=== PATIENT | male | born 1970 | race Caucasian/White ===

== ENCOUNTER 2019-01-22 21:33 | Emergency (ER) | payer MEDICAID ==
[~2019-01-22] VITALS: Ht 172.7 cm; Wt 99.8 kg
--- NOTE | 2019-01-22 21:43 | NUR ---
Dr. Chambers at bedside for MSE.
[2019-01-22] MEDS ORDERED: IV NORMAL SALINE 1000 ML BAG IV ONE (21:45)
[2019-01-22] MEDS ORDERED: ONDANSETRON 4 MG/2 ML VIAL IV ONE (21:45)
[2019-01-22] MEDS ORDERED: HYDROMORPHONE 1 MG/1 ML DISP.SYRIN IV ONE ×2 (21:45→23:15)
[2019-01-22] MEDS ORDERED: IOHEXOL 300MG/ML 100 ML INFUS..BTL ONE (21:56)
[2019-01-22] MEDS ORDERED: SWABABLE VALVE TRANSFER SET EA MC ONE (21:56)
[2019-01-22] MEDS ORDERED: IV NORMAL SALINE 250 ML IV ONE (21:56)
[2019-01-22] MEDS ORDERED: ONDANSETRON 4 MG/2 ML VIAL ONE (21:58)
[2019-01-22] MEDS ORDERED: HYDROMORPHONE 1 MG/1 ML DISP.SYRIN ONE ×2 (21:58→23:26)
[2019-01-22 22:02] LABS: BASOPHILS % (AUTO) 0.2 % (0.0-2.0); EOSINOPHILS % (AUTO) 0.4 % (0.0-7.0); HEMATOCRIT 46.6 % (36.7-47.1); HEMOGLOBIN 15.5 g/dL (12.5-16.3); LYMPHOCYTES # (AUTO) 1.6 K/uL (20.0-40.0); MEAN CORPUSCULAR HEMOGLOBIN 28.8 uug (23.8-33.4); MEAN CORPUSCULAR HGB CONC 33 g/dL (32.5-36.3); MEAN CORPUSCULAR VOLUME 86.9 fL (73.0-96.2); MONOCYTES # (AUTO) 0.9 K/uL (2.0-10.0); MONOCYTES % (AUTO) 7.2 % (0.0-11.0); NEUTROPHILS # (AUTO) 10.5 K/uL (1.8-8.9); NEUTROPHILS % (AUTO) 80.2 % (38.5-71.5); PLATELET COUNT (AUTO) 231 K/uL (152-348); RED BLOOD CELL COUNT(AUTO) 5.37 MIL/uL (4.06-5.63); WHITE BLOOD COUNT (AUTO) 13.1 K/uL (3.6-10.2)
[2019-01-22 22:11] LABS: CREATININE 1.1 mg/dL (0.6-1.3); POTASSIUM 3.6 mmol/L (3.5-5.1)
[2019-01-22 22:17] LABS: BILIRUBIN,DIRECT 0.2 mg/dL (0.0-0.2); BILIRUBIN,TOTAL 0.7 mg/dL (0.2-1.0); TOTAL PROTEIN, SERUM 6.6 g/dL (6.4-8.2)
--- NOTE | 2019-01-22 22:37 | NUR ---
Ultrasound at bedside.
--- NOTE | 2019-01-22 22:45 | NUR ---
Pt out of ER for CT.
--- NOTE | 2019-01-22 23:00 | NUR ---
Pt back to ER from CT.
[2019-01-22] MEDS ORDERED: METRONIDAZOLE 500 MG/NS 100 ML PIGGYBACK IV ONE (23:15)
[2019-01-22] MEDS ORDERED: LEVOFLOXACIN 750 MG/D5W 150 ML PIGGYBACK IV ONE (23:15)
[2019-01-22] MEDS ORDERED: METRONIDAZOLE 500 MG/NS 100ML 100 ML IV ONE (23:25)
[2019-01-22] MEDS ORDERED: LEVOFLOXACIN 750MG/D5W 150 ML IV ONE (23:26)
[2019-01-23 01:27] VITALS: BP 110/70
--- NOTE | 2019-01-23 01:27 | NUR ---
Patient discharged to home in stable conditon. Written and verbal after care instructions given. Patient verbalizes understanding of instructions. Pt ambulated out of ER with steady gait, no acute signs of distress, VSS, all belongings taken, IV site discontinued.
== END 2019-01-23 01:28 | disposition home or self-care (01) ==
LOC: ER 21:35
DX: K57.32 Diverticulitis of large intestine without perforation or abscess without bleeding (principal); Z88.0 Allergy status to penicillin
CPT/HCPCS: 36415; 74177; 76705; 80048; 80076; 83690; 85025; 96365; 96367; 96375; 96376; 99284; J1170 ×2; J1956; J2405; J3490; Q9967; A4663; J7030; J7050

== ENCOUNTER 2020-01-30 21:06 | Emergency (ER) | payer MEDICAID, OTHER ==
[~2020-01-30] VITALS: Ht 175.3 cm; Wt 103.9 kg
--- NOTE | 2020-01-30 22:15 | NUR ---
MSE COMPLETED, PT D/C'D HOME, ACI/RX X3 GIVEN. PT AMBULATED W/O DIFF/TOOK ALL BELONGINGS.
[2020-01-30 22:16] VITALS: BP 168/74
== END 2020-01-30 22:17 | disposition home or self-care (01) ==
LOC: ER 21:14
DX: L02.415 Cutaneous abscess of right lower limb (principal); L03.115 Cellulitis of right lower limb; Z88.0 Allergy status to penicillin; Z86.14 Personal history of Methicillin resistant Staphylococcus aureus infection; R03.0 Elevated blood-pressure reading, without diagnosis of hypertension
CPT/HCPCS: 10060; 76882; 99284; J3490; A4663